=== PATIENT | female | born 1980 | race Caucasian/White ===

== ENCOUNTER 2016-05-10 20:47 | Emergency (ER) | payer BC, OTHER ==
[2016-05-10 21:05] VITALS: PULSE 100; RESP 24; O2SAT 98
[2016-05-10 21:35] VITALS: BP 141/83; TEMP 99.4
== END 2016-05-10 21:50 | disposition home or self-care (01) ==
LOC: ED 20:47
DX: S93.602A Unspecified sprain of left foot, initial encounter (principal); X50.9XXA Other and unspecified overexertion or strenuous movements or postures, initial encounter
CPT/HCPCS: 73630; 99282